=== PATIENT | male | born 1970 ===

== ENCOUNTER → 2020-10-17 | Outpatient (CLI) | payer BC ==
[~2020-10-17] VITALS: Ht 182.9 cm; Wt 99.8 kg
[~2020-10-17] MED LIST: AMITRIPTYLINE H10 M1 PO; FISH OIL 1,0001 EAC9 PO; MULTI VITAMIN1 EACH PO; NAPROXEN500 MG PO; NEURONTIN300 MG PO; ORPHENADRINE C100 M2 PO; TERBINAFINE15 G1 TOP; VITAMIN D3 COM1 EACH PO
[2020-10-17 09:20] VITALS: BP 152/90
--- NOTE | 2020-10-17 10:08 | NUR ---
[facility] Assessment: 1. History of Osteoarthritis: Left Lower Extremity Right Upper Extremity History of Rheumatoid Arthritis: Not Applicable 2. Height: 6 ft. 0 in. 182.9 cm. Weight: 220.0 lb. oz. 99.792 kg. Patient's BMI: 29.8 3. Vital Signs: BP: 152/90 Pulse: 89 Resp: 16 Temp: 02 Sat: 97 ECG Mon: 4. Pain Intensity: 7-8 W/ACTIVITY 5. Fall Risk: Dizziness: N Needs help standing or walking: N Fallen in the last 3 months: N Fall risk comments: 6. Patient on Blood Thinner: None 7. History of Hypertension: N 8. Opioid Therapy greater than 6 weeks: N Opiate Contract Signed: 9. Risk Assessment Tool Provided: REJI 10. Functional Assessment Tool: 11. Recreational Drug Use: Never Drug Type: Tobacco Use: Never Smoker Tobacco Type: Amount or Packs/day: How Many Years: Alcohol Use: Yes Frequency: Special Occasions Quant: 1-2
== END ==
LOC: PAIN 07:01
PROVIDERS: ATTEND Anesthesiology Pain Medicine
DX: S99.822D Other specified injuries of left foot, subsequent encounter (principal); M54.5 Low back pain; M79.671 Pain in right foot; M79.672 Pain in left foot; W01.0XXD Fall on same level from slipping, tripping and stumbling without subsequent striking against object, subsequent encounter